=== PATIENT | female | born 1985 | race Caucasian/White ===

== ENCOUNTER 2018-08-13 09:20 | Emergency (ER) | payer OTHER ==
[~2018-08-13] VITALS: Ht 152.4 cm; Wt 66.2 kg
[2018-08-13 09:20] VITALS: BP 123/73
[2018-08-13] MEDS ORDERED: IBUPROFEN 600 MG TABLET. PO ONE (09:45)
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
[2018-08-13] MEDS ORDERED: MORPHINE SULFATE 10 MG/ML SYRINGE. IM ONE (10:15)
[2018-08-13] MEDS ORDERED: HYDR-3165 PO (10:41)
== END 2018-08-13 10:49 | disposition home or self-care (01) ==
LOC: ER 09:20
DX: S52.222A Displaced transverse fracture of shaft of left ulna, initial encounter for closed fracture (principal); Z88.8 Allergy status to other drugs, medicaments and biological substances; V89.2XXA Person injured in unspecified motor-vehicle accident, traffic, initial encounter; Y93.I9 Activity, other involving external motion; Y92.828 Other wilderness area as the place of occurrence of the external cause; Y99.8 Other external cause status
CPT/HCPCS: 29240; 73090; 96372; 99283; J2270